=== PATIENT | female | born 1985 | race Two or more races ===

== ENCOUNTER → 2022-11-14 06:00 | Outpatient (CLI) | payer OTHER ==
[~2022-11-14] VITALS: Ht 167.6 cm; Wt 74.8 kg
[~2022-11-14 06:00] MED LIST: LOSARTAN-HCTZ1 EACH PO
== END | disposition home or self-care (01) ==
LOC: LAB 06:00 → EDSTATUS 11-20 08:15 → CIR.AMB 11-20 08:15
PROVIDERS: ATTEND Obstetrics & Gynecology
DX: D60.1 Transient acquired pure red cell aplasia (principal); D60.0 Chronic acquired pure red cell aplasia; B19.20 Unspecified viral hepatitis C without hepatic coma; Z20.822 Contact with and (suspected) exposure to COVID-19